=== PATIENT | female | born 1965 | race Caucasian/White ===

== ENCOUNTER 2017-09-20 11:09 | Emergency (ER) | payer OTHER ==
[~2017-09-20] VITALS: Ht 175.3 cm; Wt 87.0 kg
[2017-09-20 11:21] VITALS: BP 133/85
[2017-09-20] MEDS ORDERED: KETOROLAC 30 MG/1 ML ONE (11:46)
[2017-09-20] MEDS ORDERED: BUSP5TAB2 PO (11:54)
[2017-09-20] MEDS ORDERED: KETOROLAC 30 MG/1 ML IM ONE (12:00)
== END 2017-09-20 12:42 | disposition home or self-care (01) ==
LOC: ED 12:00
DX: I80.01 Phlebitis and thrombophlebitis of superficial vessels of right lower extremity (principal)
CPT/HCPCS: 93971; 96372; 99284; J1885

== ENCOUNTER → 2020-01-23 | Outpatient (CLI) | payer OTHER ==
[~2020-01-23] MED LIST: ALPR0.25 PO; BUSP10TA PO; BUSP5TAB2 PO; CELE200C PO; FLUO20CA19 PO
== END | disposition home or self-care (01) ==
LOC: STAR 15:41
PROVIDERS: ATTEND Orthopaedic Surgery
DX: Z20.828 Contact with and (suspected) exposure to other viral communicable diseases (principal); M77.11 Lateral epicondylitis, right elbow; M65.4 Radial styloid tenosynovitis [de Quervain]
CPT/HCPCS: 87635

== ENCOUNTER 2020-01-29 08:59 | Day surgery (SDC) | payer OTHER ==
[~2020-01-29] VITALS: Ht 175.3 cm; Wt 82.9 kg
[2020-01-29 09:40] VITALS: BP 152/91
[2020-01-29] MEDS ORDERED: CHLORHEXIDINE 15 ML UDC MM ONE (10:00)
[2020-01-29] MEDS ORDERED: LACTATED RINGERS 1,000 ML IV SCH (10:00)
[2020-01-29] MEDS ORDERED: BUPIVACAINE/PF-EPI 0.5% 1:200K ONE (10:08)
[2020-01-29] MEDS ORDERED: FENTANYL PF 100 MCG/2ML ONE ×2 (10:25→12:22)
[2020-01-29] MEDS ORDERED: MIDAZOLAM 1 MG/ML, 2ML ONE (10:25)
[2020-01-29] MEDS ORDERED: ONDANSETRON 2MG/ML, 2ML IVPush PRN (10:30)
[2020-01-29] MEDS ORDERED: HYDROmorphone 1 MG/ML, 1ML INJ IVPush PRN (10:30)
[2020-01-29] MEDS ORDERED: OXYcodone 5 MG/5 ML ORAL.SOL UDC PO PRN (10:30)
[2020-01-29] MEDS ORDERED: DIAZEPAM 5 MG/ML, 2ML IVPush PRN (10:30)
[2020-01-29] MEDS ORDERED: ACETAMINOPHEN 325 MG TABLET PO PRN (10:30)
[2020-01-29] MEDS ORDERED: DIPHENHYDRAMINE 50 MG/ML, 1ML IVPush PRN (10:30)
[2020-01-29] MEDS ORDERED: PROMETHAZINE 25 MG/ML, 1ML IVPush PRN (10:30)
[2020-01-29] MEDS ORDERED: BETAMETHASONE 6 MG/ML, 5ML IM ONE (10:43)
[2020-01-29] MEDS ORDERED: DEXAMETHASONE 4 MG/ML, 1ML ONE (11:13)
[2020-01-29] MEDS ORDERED: ONDANSETRON 2MG/ML, 2ML ONE (11:13)
[2020-01-29] MEDS ORDERED: KETOROLAC 30 MG/1 ML ONE (11:13)
[2020-01-29] MEDS ORDERED: CEFAZOLIN 1,000 MG ONE (11:13)
[2020-01-29] MEDS ORDERED: PROPOFOL 50 ML ONE (11:22)
[2020-01-29] MEDS ORDERED: OXYcodone 5 MG/5 ML ORAL.SOL UDC ONE (12:22)
[2020-01-29] MEDS: FENTANYL PF 100 MCG/2ML IV PRN ×2 (12:25→12:37)
== END 2020-01-29 14:00 | disposition home or self-care (01) ==
LOC: OUT 08:59
PROVIDERS: ATTEND Orthopaedic Surgery
DX: M65.4 Radial styloid tenosynovitis [de Quervain] (principal); M77.11 Lateral epicondylitis, right elbow; F41.9 Anxiety disorder, unspecified; J45.909 Unspecified asthma, uncomplicated; Z79.899 Other long term (current) drug therapy; Z82.49 Family history of ischemic heart disease and other diseases of the circulatory system; Z90.710 Acquired absence of both cervix and uterus; Z87.891 Personal history of nicotine dependence
CPT/HCPCS: 24359; 25000; 64772; J0702; J2250; J2704; J3010; J7120; J0690; J1100; J1885; J2405